=== PATIENT | female | born 1950 | race Caucasian/White ===

== ENCOUNTER → 2024-11-13 | Day surgery (SDC) | payer MEDICARE, BC ==
[2024-11-12 12:58] LABS: BASOPHILS % 0.3 % (0.0-1.0); EOSINOPHILS # (AUTO) 0.2 (0.0-0.4); EOSINOPHILS % 2.3 % (0.0-6.0); HEMATOCRIT 34.8 % (34.2-44.1); HEMOGLOBIN 12.1 g/dL (12.0-16.0); LYMPHOCYTES # (AUTO) 0.6 (1.0-3.2); MEAN CORPUSCULAR HEMOGLOBIN 30.6 pg (28-32); MEAN CORPUSCULAR HGB CONC 34.8 g/dL (31-35); MEAN CORPUSCULAR VOLUME 87.9 fL (81-99); MONOCYTES # (AUTO) 0.7 (0.2-0.8); MONOCYTES % 10.5 % (4.4-11.3); NEUTROPHILS # (AUTO) 5.1 (2.1-6.9); NEUTROPHILS % 77.3 % (38.7-80.0); PLATELET COUNT 202 x10e3/uL (140-360); RED BLOOD COUNT 3.96 x10e6/uL (3.6-5.1); RED CELL DISTRIBUTION WIDTH 12.6 % (11.7-14.4); WHITE BLOOD COUNT 6.64 x10e3/uL (4.8-10.8)
[~2024-11-13] MED LIST: ACETAMINOPHEN 1000 MG/100 ML 100 ML IV ONE; ARMOUR THYROID30 MG PO; ASPIRIN 325 MG TAB PO SCH; ATORVASTATIN CA10 MG PO; AZO BLADDER CO300 MG; CELEBREX200 MG PO; CELECOXIB 100 MG CAP PO SCH; COQ-10100 MG; D3-5000125 MCG; DEXAMETHASONE SOD PHOS INJ 4 MG/ML SDV ONE; DOCUSATE SODIU100 MG PO; DOCUSATE SODIUM 100 MG CAP PO PRN; DOXYCYCLINE HY100 MG PO; EPHEDRINE SULFATE INJ 50 MG/ML VIAL ONE; FENTANYL CITRATE/PF 100MCG/2 ML INJ ONE; FLONASE ALLERG9.9 ML INH; HYDROCODON-ACE1 EAC9; HYDROCODONE/APAP 5MG-325MG TAB PO PRN; KETOROLAC TROMETHAMINE 30 MG/ML VIAL IV PRN; LIDOCAINE HCL 2% LOCAL INJ 5 ML SDV VIAL INJ ONE; MEGARED OMEGA-1 EAC3; METOPROLOL SUCC50 MG PO; NEURONTIN300 MG PO; OLMESARTAN-HCT1 EAC1 PO; ONDANSETRON HCL INJ 2MG/ML 2ML 2 MG/ML VIAL IV PRN; ONDANSETRON HCL INJ 2MG/ML 2ML 2 MG/ML VIAL ONE; ONE DAILY FOR1 EAC3; OS-CAL 500+D T1 EACH PO; OSTEO BI-FLEX1 EAC4; PAMELOR25 MG PO; PANTOPRAZOLE SO40 MG PO; PLAQUENIL200 MG PO; PROBIOTIC & AC1 EACH PO; PROPOFOL IV EMULSION 10 MG/ML 20 ML VIAL ONE; ROPIVACAINE/EPI/CLONIDINE/KET 50 ML SYRINGE INJ ONE; SALAGEN7.5 MG PO; SEVOFLURANE INHAL SOLN 250 ML PEN BTL ONE; TIZANIDINE HCL4 MG PO; TRAZODONE HCL300 MG PO; TUMERIC; XYLIMELTS; [UNRECOGNIZED DRUG - OTHER] PO; [UNRECOGNIZED DRUG - OTHER] PO
[2024-11-13] MEDS: LACTATED RINGER'S 1,000 ML ONE (09:35)
[2024-11-13] MEDS: CEFAZOLIN SODIUM 2 GM ONE (09:36)
[2024-11-13 13:35] VITALS: TEMP 97.3
[2024-11-13] MEDS: FENTANYL CITRATE/PF 100MCG/2 ML INJ ONE (13:50)
[2024-11-13] MEDS: HYDROMORPHONE 1MG/1ML INJ ONE (14:10)
[2024-11-13] MEDS: HYDROCODONE/APAP 10MG-325MG TAB ONE (14:25)
[2024-11-13 15:35] VITALS: BP 142/99; PULSE 66; RESP 16; O2SAT 99
== END | disposition home or self-care (01) ==
LOC: OR 08:28
PROVIDERS: ATTEND Orthopaedic Surgery Adult Reconstructive Orthopaedic Surgery
DX: M17.11 Unilateral primary osteoarthritis, right knee (principal); M22.41 Chondromalacia patellae, right knee; Z96.651 Presence of right artificial knee joint; J45.909 Unspecified asthma, uncomplicated; I10 Essential (primary) hypertension; E03.9 Hypothyroidism, unspecified; M35.00 Sjogren syndrome, unspecified; K58.9 Irritable bowel syndrome, unspecified; K57.90 Diverticulosis of intestine, part unspecified, without perforation or abscess without bleeding; D49.1 Neoplasm of unspecified behavior of respiratory system; Z88.8 Allergy status to other drugs, medicaments and biological substances; Z91.041 Radiographic dye allergy status; Z01.812 Encounter for preprocedural laboratory examination; Z01.818 Encounter for other preprocedural examination; Z79.899 Other long term (current) drug therapy; Z85.72 Personal history of non-Hodgkin lymphomas; Z92.3 Personal history of irradiation
CPT/HCPCS: 27438; 36415; 71046; 73560; 85025; 86850; 86860; 86870; 86880 ×2; 86900; 86905; 93005; 97110; 97116; 97161; C1713; C1776; J0131; J1100; J1171; J2003; J2405; J2704; J3010; J7121; 99001

== ENCOUNTER → 2025-03-19 | Day surgery (SDC) | payer MEDICARE, BC ==
[2025-03-17 14:47] LABS: BASOPHILS % 0.3 % (0.0-1.0); EOSINOPHILS % 0.2 % (0.0-6.0); LYMPHOCYTES % 8.9 % (18.0-39.1); MONOCYTES % 13.1 % (4.4-11.3); NEUTROPHILS % 77.2 % (38.7-80.0); RED CELL DISTRIBUTION WIDTH 12.9 % (11.7-14.4)
[2025-03-17 15:10] LABS: EST GLOMERULAR FILTRATION RATE 76.0 ML/MIN (>=60)
[~2025-03-19] MED LIST changes: +CEFAZOLIN SODIUM 2 GM ONE; +EVENITY105 MG/1.1 IM; +FAMOTIDINE 20 MG/2 ML VIAL IV ONE; -HYDROCODONE/APAP 5MG-325MG TAB PO PRN; +HYDROCODONE/APAP 7.5MG-325MG 1 EA TAB PO PRN; -KETOROLAC TROMETHAMINE 30 MG/ML VIAL IV PRN; +LACTATED RINGER'S 1,000 ML ONE; +PHENYLEPHRINE HCL 1% 10 MG/ML VIAL ONE; +SODIUM CHLORIDE 0.9% 100 ML ONE
[2025-03-19 10:25] VITALS: TEMP 97.3
[2025-03-19] MEDS: FENTANYL CITRATE/PF 100MCG/2 ML INJ ONE (10:50)
[2025-03-19] MEDS: HYDROCODONE/APAP 7.5MG-325MG 1 EA TAB ONE (11:10)
[2025-03-19 12:45] VITALS: BP 121/50; PULSE 78; RESP 18; O2SAT 97
== END | disposition home or self-care (01) ==
LOC: OR 06:54
PROVIDERS: ATTEND Orthopaedic Surgery Adult Reconstructive Orthopaedic Surgery
DX: T84.032A Mechanical loosening of internal right knee prosthetic joint, initial encounter (principal); J45.909 Unspecified asthma, uncomplicated; I10 Essential (primary) hypertension; G89.29 Other chronic pain; M35.00 Sjogren syndrome, unspecified; Y83.8 Other surgical procedures as the cause of abnormal reaction of the patient, or of later complication, without mention of misadventure at the time of the procedure; Z88.8 Allergy status to other drugs, medicaments and biological substances; Z91.041 Radiographic dye allergy status; Z01.810 Encounter for preprocedural cardiovascular examination; Z01.812 Encounter for preprocedural laboratory examination; Z79.899 Other long term (current) drug therapy; Z91.81 History of falling
CPT/HCPCS: 27486; 36415; 73560; 80048; 85025; 93005; 97110; 97116; 97161; C1713 ×2; J0131; J0690; J1100; J1308; J2003; J2371; J2405; J2704; J3010; J7050; J7121